=== PATIENT | female | born 1970 | race Caucasian/White ===

== ENCOUNTER → 2021-07-06 10:50 | Outpatient (CLI) | payer OTHER, BC, SELFPAY ==
--- NOTE | ~2021-07-06 | US_ITS ---
US right upper quadrant DATE: 07/06/2021 11:26 INDICATION: Epigastric and right upper quadrant abdominal pain TECHNIQUE: Real-time imaging, Doppler analysis COMPARISON: None FINDINGS: No hepatic space-occupying mass lesion is detected. Normal hepatopedal portal venous flow d irection. No gallstones, gallbladder wall thickening or pericholecystic fluid collection. Negative sonographic Miller's sign. The common bile duct measures 4.9 mm, normal. No pancreatic mass lesion or ductal dilatation. The right kidney is unremarkable.. IMPRESSION: No significant abnormality Reviewed, dictated and finalized at [facility]. Reviewed, dictated and finalized at [facility]. IMPRESSION: No significant abnormality
== END ==
PROVIDERS: PCP Emergency Medicine; Visit Provider Emergency Medicine
DX: R10.9 Unspecified abdominal pain (principal)
CPT/HCPCS: 76705

== ENCOUNTER 2022-06-15 07:30 | Outpatient (CLI) | payer OTHER, BC, SELFPAY ==
--- NOTE | ~2022-06-15 | NM_ITS ---
EXAMINATION: NM hepatobiliary wo pharm DATE: 06/15/2022 11:04 INDICATION: Right upper quadrant abdominal pain COMPARISON: None. TECHNIQUE: I 0.2 mCi Tc-99m mebrofenin (Choletec) was administered intravenously. Scintigraphic imag es of the abdomen were obtained for one hour. At the 1 hour time point, the patient drank 8 oz Ensure , and imaging was continued for 60 minutes. Gallbladder ejection fraction was calculated by the techn ologist. FINDINGS: There is normal clearance of radiotracer from the blood pool. There is homogeneous tracer u ptake by the liver. Activity progresses to the bowel and gallbladder. The gallbladder ejection fract ion (GBEF) is 66%. Note that with this technique, normal GBEF >= 33%. IMPRESSION: 1. Gallbladder ejection fraction below normal limits consistent with either gallbladder dysfunction or chronic cholecystitis in the appropriate clinical setting. Reviewed, dictated and finalized at location [facility]. IMPRESSION: 1. Gallbladder ejection fraction below normal limits consistent with either ga llbladder dysfunction or chronic cholecystitis in the appropriate clinical sett ing.
== END 2022-06-15 07:31 | disposition home or self-care (01) ==
PROVIDERS: PCP Emergency Medicine; Visit Provider Nurse Practitioner Family
DX: R10.11 Right upper quadrant pain (principal)
CPT/HCPCS: 78226; A9537

== ENCOUNTER 2022-07-09 00:06 | Day surgery (SDC) | payer OTHER, BC, SELFPAY ==
[2022-06-21 12:37] VITALS: BMI 28.4
[2022-07-09 07:58] VITALS: BP 146/92; PULSE 76; RESP 20; TEMP 37; O2SAT 95; BMI 27.4
[2022-07-09] MEDS: LACTATED RINGERS 1,000 ML 150 ML IV CONT (08:13)
--- NOTE | 2022-07-09 08:39 | WPDANESEPPF ---
Anes - Initial Pre Proc Eval Procedure: Operation Date: 07/09/22 09:00 Proposed Procedures p Esophagogastroduodenoscopy - Jose Amin MD Date/Time: 07/09/22 08:39 Surgeon: Jose Amin MD Pre Op Diagnosis: RUQP Patient Data Age: 52 Gender: F Height: 1.68 m Weight: 77.1 kg Last Vital Signs Temp 98.6 F 07/09/22 07:58 Pulse 76 07/09/22 07:58 Resp 20 07/09/22 07:58 BP 146/92 H 07/09/22 07:58 Pulse Ox 95 07/09/22 07:58 O2 Del Method Room Air 07/09/22 07:58 Allergies Allergy/AdvReac Type Severity Reaction Status Date / Time No Known Allergies Allergy Unknown Verified 07/09/22 07:57 Home Medications Medication Instructions Recorded Confirmed Type cholecalciferol (vitamin D3) 50 2,000 unit PO DAILY 12/10/19 07/09/22 History mcg (2,000 unit) capsule olmesartan 20 1 tablet PO DAILY #90 tabs 05/04/22 07/09/22 Rx mg-hydrochlorothiazide 12.5 mg tablet sertraline 100 mg tablet See Rx Instructions .Route 05/04/22 07/09/22 Rx .COMPLEX #90 tabs albuterol sulfate 90 mcg/actuation See Rx Instructions .Route 05/18/22 07/09/22 Rx aerosol inhaler .COMPLEX #8.5 grams omeprazole 40 mg capsule,delayed 40 mg PO DAILY PRN Acid Reflux 06/19/22 07/09/22 History release fluticasone propionate 50 1 - 2 spray intranasal DAILY PRN 06/21/22 07/09/22 History mcg/actuation nasal Congestion spray,suspension Patient hx anesthesia problems: none Family hx anesthesia problems: none Results Review: All pre-operative results and documents have been reviewed as part of the pre-operative evaluation. [facility] Past Medical History Medical History Acute sinusitis Biliary dyskinesia Body mass index [BMI] 30.0-30.9, adult (12/09/17) Depression Encounter for insertion of mirena IUD 2012 Hot flashes HTN (hypertension) Intractable episodic headache Other hyperlipidemia RUQ pain Upper respiratory tract infection Surgical History Surgical History History of left-sided carotid endarterectomy Family History Family History Father Family history of pancreatic disease Mother Family history of heart disease in male family member before age 55 Hypertension, Onset Age: 68 Family history of cardiovascular disease, Onset Age: 68 Sibling Asthma Social History Social History (Updated 07/04/22 @ 15:41 by Nathalie Hansen MA) Smoking packs per day: 1 Smoking cigarettes per day: 20.0 Years smoked: 20 Smoking pack-years: 20.00 Smoking status: Current every day smoker Tobacco type: cigarettes Alcohol intake: current Drinks per week: 5 Alcohol use details: 5 Substance use: never Substance use type: does not use Living arrangements: with family Additional occupation/education comments: Customer Service Gender identity (if verbalized by the patient): Female Spiritual care concerns: No Anes - Eval Final PreProcedure Day of Procedure 07/09/22 08:39 Patient weight: normal Heart: regular rate and rhythm Lungs: clear to auscultation Airway: Mallampati scale class II Neurological: alert and oriented Last oral intake: >/= 8 hours ASA classification: III Emergent: no Anesthetic plan: proceed Anesthesia type and monitoring: general GIVS and standard monitoring Results Review: All pre-operative results and documents have been reviewed as part of the pre-operative evaluation. Informed Consent: The patient's anesthetic plan and its attendant risks and benefits were discussed with the patient/family/POA. Questions were solicited and answers provided to the satisfaction of the patient/family/POA.
--- NOTE | 2022-07-09 09:04 | PM.HPGS ---
History of Present Illness History of Present Illness Consent: Risks, benefits, and alternatives have been discussed and questions answered. Patient agrees to proceed with procedure. Chief complaint: RUQP Narrative: Ebony Liu is a 52 year old female with intermittent RUQ, better lately Review of Systems Constitutional: Constitutional: Denies headache(s) and Denies weakness Eyes: Eyes: Denies blurry vision ENT: Reports Normal hearing present, Denies headache(s) and Denies neck pain Cardiovascular: Cardiovascular: Denies chest pain and Denies dyspnea Respiratory: Respiratory: Denies dyspnea Gastrointestinal: Gastrointestinal: Reports no additional gastrointestinal complaints Genitourinary: Genitourinary: Denies dysuria Musculoskeletal: Musculoskeletal: Denies neck pain Integumentary/Breasts: Skin/Breast: Denies dry skin Neurologic: Reports Normal hearing present, Denies headache(s) and Denies weakness Psychiatric: Psychiatric: Denies anxiety Endocrine: Endocrine: Denies change in body appearance Hematologic/Lymphatic: Hematologic/Lymphatic: Denies easy bleeding Allergic/Immunologic: Allergic/Immunologic: Denies urticaria PMFSH Past Medical History Medical History Acute sinusitis Biliary dyskinesia Body mass index [BMI] 30.0-30.9, adult (12/09/17) Depression Encounter for insertion of mirena IUD 2013 Hot flashes HTN (hypertension) Intractable episodic headache Other hyperlipidemia RUQ pain Upper respiratory tract infection Surgical History Surgical History History of left-sided carotid endarterectomy Family History Family History Father Family history of pancreatic disease Mother Family history of heart disease in male family member before age 55 Hypertension, Onset Age: 68 Family history of cardiovascular disease, Onset Age: 68 Sibling Asthma Social History Social History (Updated 07/04/22 @ 15:41 by Nathalie Hansen MA) Smoking packs per day: 1 Smoking cigarettes per day: 20.0 Years smoked: 20 Smoking pack-years: 20.00 Smoking status: Current every day smoker Tobacco type: cigarettes Alcohol intake: current Drinks per week: 5 Alcohol use details: 5 Substance use: never Substance use type: does not use Living arrangements: with family Additional occupation/education comments: Customer Service Gender identity (if verbalized by the patient): Female Spiritual care concerns: No Meds Home Medications and Allergies Home Medications Medication Instructions Recorded Confirmed Type cholecalciferol (vitamin D3) 50 2,000 unit PO DAILY 12/10/19 07/09/22 History mcg (2,000 unit) capsule olmesartan 20 1 tablet PO DAILY #90 tabs 05/04/22 07/09/22 Rx mg-hydrochlorothiazide 12.5 mg tablet sertraline 100 mg tablet See Rx Instructions .Route 05/04/22 07/09/22 Rx .COMPLEX #90 tabs albuterol sulfate 90 mcg/actuation See Rx Instructions .Route 05/18/22 07/09/22 Rx aerosol inhaler .COMPLEX #8.5 grams omeprazole 40 mg capsule,delayed 40 mg PO DAILY PRN Acid Reflux 06/19/22 07/09/22 History release fluticasone propionate 50 1 - 2 spray intranasal DAILY PRN 06/21/22 07/09/22 History mcg/actuation nasal Congestion spray,suspension Allergies Allergy/AdvReac Type Severity Reaction Status Date / Time No Known Allergies Allergy Unknown Verified 07/09/22 07:57 Vital Signs Vital Signs - 24 hr 07/09/22 07:58 Temperature 98.6 F Pulse Rate 76 Respiratory Rate 20 Blood Pressure 146/92 H Pulse Oximetry 95 Oxygen Delivery Room Air Exam Const: General: comfortable and no acute distress HENMT: Face/Nose/Sinus: Normal nares present Eyes: General: appearance normal, both eyes and all related structures Neck: Neck: no JVD Resp: Auscultation: [email or web address]
[2022-07-09 09:22] VITALS: BP 128/81; PULSE 74; RESP 24; O2SAT 96
[2022-07-09 09:32] VITALS: BP 134/88; PULSE 75; RESP 17; O2SAT 100
[2022-07-09 09:42] VITALS: BP 142/85; PULSE 72; RESP 20; O2SAT 100
== END 2022-07-09 09:55 | disposition home or self-care (01) ==
PROVIDERS: PCP Emergency Medicine; Visit Provider Internal Medicine Gastroenterology
PROC: 0DJ08ZZ Inspection of Upper Intestinal Tract, Via Natural or Artificial Opening Endoscopic (ICD-10-PCS; CPT 43235; principal; 2022-07-09 09:00)
DX: R10.11 Right upper quadrant pain (principal); K29.50 Unspecified chronic gastritis without bleeding; I10 Essential (primary) hypertension; F32.A Depression, unspecified; E78.49 Other hyperlipidemia; F17.210 Nicotine dependence, cigarettes, uncomplicated; Z79.51 Long term (current) use of inhaled steroids
CPT/HCPCS: 43239; 87081; 88305; J2704; J3010; J7120

== ENCOUNTER 2023-10-14 11:11 | Emergency (ER) | payer OTHER, SELFPAY ==
[2023-10-14 11:28] VITALS: BP 125/87; PULSE 90; RESP 18; TEMP 36.6; O2SAT 96
--- NOTE | 2023-10-14 11:50 | ED.URI ---
HPI - URI/Sore Throat General Chief Complaint: Upper Respiratory Infection Stated Complaint: sob,cough,weakness Time Seen by Provider: 10/14/23 11:50 Source: patient Mode of arrival: ambulatory Limitations: no limitations History of Present Illness HPI Narrative: 53-year-old female presenting for complaint of cough with shortness of breath for 4 days. Endorses mild nasal congestion, and mild nausea. States she feels like she cannot cough anything up. The day after symptom onset she used a [facility] health doctor and was prescribed Augmentin. Denies vomiting, diarrhea, lethargy, wheezing or chest pain. Taking rodri selzter, using inhaler at times. Daily smoker. Related Data Home Medications Medication Instructions Recorded Confirmed amoxicillin 875 mg-potassium tablet 10/14/23 clavulanate 125 mg tablet Allergies Allergy/AdvReac Type Severity Reaction Status Date / Time No Known Allergies Allergy Unknown Verified 10/14/23 11:50 Review of Systems Review of Systems: CONSTITUTIONAL: Denies body aches, fever, chills, or sweats. EYES: Denies visual changes, redness, or discharge. ENT: Denies rhinorrhea, sore throat, or otalgia. CARDIOVASCULAR: Denies chest pain, palpitations, or edema. RESPIRATORY: Reports cough, sob, denies wheezing. GASTROINTESTINAL: Denies abdominal pain, nausea, vomiting, or diarrhea. SKIN: Denies rash, itching, or wounds. MUSCULOSKELETAL: Denies back pain, joint pain, or myalgia. NEUROLOGIC: Denies headache, numbness, tingling, or weakness. All systems reviewed & are unremarkable except as noted in HPI and below PMFSH Past Medical History Medical History Acute sinusitis Biliary dyskinesia Body mass index [BMI] 30.0-30.9, adult (12/09/17) Depression Encounter for insertion of mirena IUD 2013 Hot flashes HTN (hypertension) Intractable episodic headache Other hyperlipidemia RUQ pain Upper respiratory tract infection Surgical History Surgical History History of left-sided carotid endarterectomy Family History Family History Father Family history of pancreatic disease Mother Family history of heart disease in male family member before age 55 Hypertension, Onset Age: 68 Family history of cardiovascular disease, Onset Age: 68 Sibling Asthma Social History Social History Smoking packs per day: 1 Smoking cigarettes per day: 20.0 Years smoked: 20 Smoking pack-years: 20.00 Smoking status: Current every day smoker Tobacco type: cigarettes Alcohol intake: current Drinks per week: 5 Alcohol use details: 5 Substance use: never Substance use type: does not use Lack of Transportation: No Lack of Food: Never True Current Housing: I Have Housing Concerned About Future Housing: No Difficulty Paying Gas/Electric Bills: No Difficulty Paying for Meds: No Currently Unemployed: No Education: High School Diploma/GED Difficulty w/ Childcare or Family Care: No Living arrangements: with family Occupation/Education: occupation Additional occupation/education comments: Customer Service Gender identity (if verbalized by the patient): Female Sexual Orientation (if Verbalized by the Patient): Straight or Heterosexual Spiritual care concerns: No Comments At time of signature, I have reviewed and agree with nursing past medical, surgical, social and family history unless otherwise noted. Please see nursing chart for further information. There is no relevant family history pertinent to the presenting complaint Exam Narrative: GENERAL: Well-appearing, in no acute distress. EYES: EOMI. No redness or drainage. Conjunctivae normal. ENT: Mucous membranes pink and moist. No rhinorrhea. TMs normal bilaterally. Throa
== END 2023-10-14 12:25 | disposition home or self-care (01) ==
PROVIDERS: Emergency Provider Nurse Practitioner Family; PCP Emergency Medicine
DX: J10.1 Influenza due to other identified influenza virus with other respiratory manifestations (principal); Z20.822 Contact with and (suspected) exposure to COVID-19; F17.210 Nicotine dependence, cigarettes, uncomplicated; I10 Essential (primary) hypertension; E78.49 Other hyperlipidemia
CPT/HCPCS: 87426; 87804; 99213; G0463

== ENCOUNTER 2024-12-10 11:30 | Emergency (ER) | payer OTHER, BC, SELFPAY ==
--- NOTE | ~2024-12-10 | XR_ITS ---
Clinical Indication: Shortness of breath PA and lateral views of the chest: Comparison: 02/28/2015 Findings: The lungs are clear, without evidence of focal consolidation or pleural effusion. Cardiome diastinal silhouette is within normal limits. Bones and soft tissues are unremarkable. Impression: Normal chest. Reviewed, dictated and finalized at location . Impression: Normal chest.
[2024-12-10 11:42] VITALS: BP 188/102; PULSE 73; RESP 18; TEMP 36.7; O2SAT 94
--- NOTE | 2024-12-10 11:43 | ED.URI ---
HPI - URI/Sore Throat General Chief Complaint: Upper Respiratory Infection Stated Complaint: congestion Time Seen by Provider: 12/10/24 11:43 Source: patient Mode of arrival: ambulatory Limitations: no limitations History of Present Illness HPI Narrative: 54 yo F presents with c/o cough, chest congestion, wheezing, SOB with exertion for 2 days. hx of bronchitis. Using albuterol inhaler at home with little relief. Current everyday smoker. All systems reviewed and negative except as noted above. Related Data Allergies Allergy/AdvReac Type Severity Reaction Status Date / Time No Known Allergies Allergy Unknown Verified 12/10/24 11:46 Review of Systems Review of Systems: CONSTITUTIONAL: Denies fever, chills, or sweats. EYES: Denies visual changes, redness, or discharge. ENT: Denies rhinorrhea, congestion, sore throat, or otalgia. CARDIOVASCULAR: Denies chest pain, palpitations, or edema. RESPIRATORY: Reports cough, chest congestion, dyspnea with exertion. GASTROINTESTINAL: Denies abdominal pain, nausea, vomiting, or diarrhea. GENITOURINARY: Denies dysuria or hematuria. SKIN: Denies rash or itching. MUSCULOSKELETAL: Denies back pain, joint pain, or myalgia. NEUROLOGIC: Denies headache, numbness, or weakness. PSYCHIATRIC: Denies anxiety or depression. All other systems reviewed are negative, except as documented in HPI. [facility] Past Medical History Medical History Acute sinusitis Biliary dyskinesia Body mass index [BMI] 30.0-30.9, adult (12/09/17) Depression Encounter for insertion of mirena IUD 2013 Hot flashes HTN (hypertension) Intractable episodic headache Other hyperlipidemia RUQ pain Upper respiratory tract infection Surgical History Surgical History History of left-sided carotid endarterectomy Family History Family History Father Family history of pancreatic disease Mother Family history of heart disease in male family member before age 55 Hypertension, Onset Age: 68 Family history of cardiovascular disease, Onset Age: 68 Sibling Asthma Social History Social History Smoking packs per day: 1 Smoking cigarettes per day: 20.0 Years smoked: 20 Smoking pack-years: 20.00 Smoking status: Current every day smoker Tobacco type: cigarettes Alcohol intake: current Drinks per week: 5 Alcohol use details: 5 Substance use: never Substance use type: does not use Current Housing: Decline to Answer Concerned About Future Housing: Decline to Answer Difficulty Paying Gas/Electric Bills: Decline to Answer Difficulty Paying for Meds: Decline to Answer Currently Unemployed: Decline to Answer Education: Decline to Answer Difficulty w/ Childcare or Family Care: Decline to Answer Living arrangements: with family Occupation/Education: occupation Additional occupation/education comments: Customer Service Gender identity (if verbalized by the patient): Female Sexual Orientation (if Verbalized by the Patient): Straight or Heterosexual Spiritual care concerns: No Comments At time of signature, agree with nursing past medical, surgical, social and family history. There is no relevant family history pertinent to the presenting complaint. Exam Narrative: GENERAL: This is a well-nourished, well-developed patient, ill-appearing but no acute distress HEAD: normocephalic, atraumatic. EYES: PERRL. Sclera clear/white. Vision is grossly intact. EARS: External ears normal, auditory canals clear and without drainage, TMs normal without perforation. Hearing grossly intact. NOSE: External nose normal with no obvious nasal discharge, nares without redness, no rhinorrhea. THROAT: Mucous membranes moist, posterior pharynx clear. NECK: Neck supple, non-tender without lymphadenopathy, masses or thyromegaly. CARDIOVASCULAR: Regular rate and rhythm without murmurs, gallops, or rubs. RESPIRATORY: mildly coarse throughout all lung johnson. Breath sounds equal bilaterally. No wheezes, rales, or rhonchi. SKIN: warm, Dry, intact with no suspicious lesions or rash, good texture and turgor. NEURO: awake, alert, and oriented to person, place and time. There were no obvious focal neurologic abnormalities. EXTREMITIES: No joint tenderness, effusion, or edema noted. Course Course Level of Care: Express Care Visit Reevaluation(s) Reevaluation #1: Lungs clear throughout all lung johnson after DuoNeb. Vital Signs Vital signs: Vital Signs Temperature 36.7 C 12/10/24 11:42 Pulse Rate 73 12/10/24 11:42 Respiratory Rate 18 12/10/24 11:42 Blood Pressure 188/102 H 12/10/24 11:42 Pulse Oximetry 94 12/10/24 11:42 Oxygen Delivery Room Air 12/10/24 11:42 Temperature 36.7 C 12/10/24 11:42 Pulse Rate 79 12/10/24 12:14 Respiratory Rate 20 12/10/24 12:14 Blood Pressure 170/92 H 12/10/24 12:29 Pulse Oximetry 95 12/10/24 12:14 Oxygen Delivery Room Air 12/10/24 11:42 Reviewed MDM - URI/Sore Throat MDM Narrative Medical decision making narrative: patient's chest x-ray negative for pneumonia. Treat patient for bronchitis. Blood pressure elevated today. Patient did not take her blood pressure meds prior to coming to [facility]. Will take them when she gets home. Will monitor blood pressure at home and if continues to be elevated will see her primary care physician. Patient is alert, nontoxic. No respiratory distress. Please be advised this is a medical document. It is intended for [id number] communication. It is written in medical language and may contain unfamiliar abbreviations or verbiage. Medical documents are intended to carry relevant information, facts as evident, and the clinical opinion of the practitioner at the time of the encounter. This report may have been done utilizing a voice recognition system. Attempts have been made to correct errors. However, there may be uncorrected grammatical, spelling, and recognition errors present. The file time of this note does not necessarily represent the time of service. Imaging Data My impression: agree with radiologist Radiologist's impression: Clinical Indication: Shortness of breath PA and lateral views of the chest: Comparison: 02/28/2015 Findings: The lungs are clear, without evidence of focal consolidation or pleural effusion. Cardiomediastinal silhouette is within normal limits. Bones and soft tissues are unremarkable. Impression: Normal chest. Discharge Plan Discharge Clinical Impression: Acute bronchitis Patient Disposition: Home, Self-Care Condition: Stable Instructions: Antibiotic Form, Acute Bronchitis (ED) Additional Instructions: Your chest x-ray was normal. Take medications as prescribed. Continue using inhaler every 4-6 hours. Drink at least 64 oz of water a day. Monitor your blood pressure at home. Follow-up with your primary care physician if blood pressure remains elevated. Patient Language: Azeri Prescriptions: New doxycycline hyclate 100 mg capsule 100 mg PO BID 7 Days Qty: 14 0RF benzonatate 200 mg capsule 200 mg PO TID PRN (Reason: cough) Qty: 20 0RF prednisone 20 mg tablet 40 mg PO DAILY 5 Days Qty: 10 0RF (DME) Aerochamber Plus Z Stat Spacer See Rx Instructions .Route Qty: 1 0RF Rx Instructions: As directed No Action fluticasone propionate [Flonase Allergy Relief] 50 mcg/actuation spray,suspension 1 spray intranasal BID Qty: 48 0RF Rx Instructions: administer into each nostril metoprolol succinate 25 mg tablet extended release 24 hr 25 mg PO DAILY Qty: 90 2RF olmesartan 20 mg tablet 20 mg PO DAILY Qty: 90 2RF sertraline 100 mg tablet See Rx Instructions .ROUTE .COMPLEX Qty: 90 2RF Dose Instruction: TAKE 1 TABLET BY MOUTH DAILY Rx Instructions: TAKE 1 TABLET BY MOUTH DAILY azelastine 137 mcg (0.1 %) spray,non-aerosol See Rx Instructions .ROUTE .COMPLEX Qty: 90 2RF Dose Instruction: USE 2 SPRAYS IN EACH NOSTRIL EVERY 12 HOURS Rx Instructions: USE 2 SPRAYS IN EACH NOSTRIL EVERY 12 HOURS albuterol sulfate 90 mcg/actuation HFA aerosol inhaler See Rx Instructions .ROUTE .COMPLEX Qty: 8.5 3RF Dose Instruction: INHALE 1 TO 2 PUFFS BY MOUTH EVERY 4 TO 6 HOURS Rx Instructions: INHALE 1 TO 2 PUFFS BY MOUTH EVERY 4 TO 6 HOURS Follow-up/Referrals: Brooks Wilkinson MD [Primary Care Provider] - Time of Disposition: 12:29
[2024-12-10] MEDS: predniSONE 20 MG TABLET 40 MG PO (11:55)
[2024-12-10] MEDS: IPRATROPIUM 0.5 MG/ALBUTEROL SULFATE 2.5 MG AMPUL.NEB 3 ML INHALATION (12:01)
[2024-12-10 12:02] VITALS: PULSE 83; RESP 22; O2SAT 93
[2024-12-10 12:14] VITALS: PULSE 79; RESP 20; O2SAT 95
[2024-12-10 12:29] VITALS: BP 170/92
--- OUTSIDE RECORDS SUMMARY | 2024-12-10 13:24 | XMS_ITS | Clinical Summary ---
Author Organization [facility] at the [facility] Address [address] [place] [address] Care Team Providers Care Solar Energy Sales Specialist Name Role Phone Brooks Wilkinson MD Primary Care Provide r Allergies No known active allergies Medications aspirin (ASPIRIN LOW DOSE) 81 mg tablet take 1 tablet by oral route every day 0 0 4 Active Additional Information Patient not taking.Reported on 08/17/2024 atorvastatin (LIPITOR) 40 mg tablet take 1 tablet by oral route every day 30 3 4 Active sertraline (ZOLOFT) 100 mg tablet take 1 tablet by oral route every day 0 0 4 Active albuterol HFA (PROVENTIL HFA,VENTOLIN HFA,PROAIR HFA) 90 mcg/actuation inhaler ProAir HFA 90 mcg/actuation aerosol inhaler INL 2 PFS PO Q 4 TO 6 H PRN Active cholecalciferol (VITAMIN D-3) 2000 unit tablet Vitamin D3 50 mcg (2,000 unit) tablet TK 1 T PO QD FOR 30 DAYS Active influenza quadrivalent 7304-7066 (FLULAVAL,FLUARI X) 60 mcg (15 mcg x 4)/0.5 mL syringe Afluria Quad 8471-9196 (PF) 60 mcg (15 mcg x 4)/0.5 mL IM syringe ADM 0.5ML IM UTD Active levonorgestreL (Mirena) IUD Mirena 20 mcg/24 hours (6 yrs) 52 mg intrauterine device Take 1 device by intrauterine route. Active nepafenac (Nevanac) 0.1 % ophthalmic suspension Nevanac 0.1 % eye drops,suspension Active olmesartan-amLOD IPin-hcthiazid 20-5-12.5 mg tablet Take by mouth Active omeprazole (PriLOSEC) 40 mg capsule TAKE 1 CAPSULE BY MOUTH DAILY FOR STOMACH ACID OR REFLUX 2 Active promethazine (PHENERGAN) 1.25 mg/mL syrup TAKE 5 ML BY MOUTH EVERY 4 -6 HOURS NEEDED 2 Active Active Problems Problem Noted Date Diagnosed Date Hyperlipidemia 07/29/2020 Smoker 07/29/2020 Assessment & Plan (08/10/2022 12:26 PM SQL ANALYST): Patient with history of tobacco abuse who is a current everyday 1 pack per day smoker. I had a greater than 3 minute discussion with the patient on the importance of smoking cessation and the negative affects on their cardiovascular health. Patient understands importance of cessation. Amenorrhea 07/28/2020 Irregular periods 07/28/2020 Occlusion and stenosis of bilateral carotid kadi veronica 12/13/2016 Assessment & Plan (08/18/2024 12:34 PM SQL ANALYST): Chronic occlusion right ICA. The left ICA shows mild stenosis. Patient remains asymptomatic and compliant with medications. Unfortunately continues to smoke. Follow-up in 1 year for routine surveillance with a carotid duplex. Assessment & Plan (08/10/2022 12:27 PM SQL ANALYST): History of bilateral carotid stenosis with chronic right-sided occlusion is status post left endarterectomy in 2013. She remains asymptomatic. Left ICA remains patent with stenosis measuring 1-15% and a velocity of 95. Seen with Dr. Doss. Plan: Return in 2 years for routine surveillance of a carotid stenosis with a carotid ultrasound. Resolved Problems Problem Noted Date Diagnosed Date Resolved Date Arterial disease 07/27/2014 07/29/2020 Overview (01/10/2017): Disorder of artery Immunizations Immunization Administration Dates Next Due Influenza, Quadrivalent, Spl it, Preservative Free, Intramuscular 07/29/2019,08/04/2018 Medical History Medical History Date Comments Hx Other Medical tobacco use; Co mments: [facility] 07/27/2014 - Hypertension Hypertension Anxiety disorder Anxiety Hx Other Medical migraine headac hes; Comments: [facility] 07/27/2014 - Social History Tobacco Use Types Packs/Day Years Used Date Smoking Tobacco: Every Day Tobacco Cessation:Ready to Q uit: Not Asked; Counseling Given: Not Answered Alcohol Use Standard Drinks/Week Comments Yes 0 (1 standard drink = 0.6 oz pur e alcohol) Comments Unknown Sex and Gender Information Value Date Recorded Sex Assigned at Not on file Legal Sex Female 3:27 AM SQL ANALYST Gender Identity Not on file Sexual Orientation Not on file Obstetrics History Last Filed Vital Signs Vital Sign Reading Time Taken Comments Blood Pressure 152/99 08/17/2024 1:48 PM SQL ANALYST Pulse 75 08/17/2024 1:48 PM SQL ANALYST Temperature - - Respiratory Rate - - Oxygen Saturation - - Inhaled Oxygen Concentration - - Weight 79.4 kg (175 lb) 08/17/2024 1:48 PM SQL ANALYST Height 167.6 cm (5' 6 ) 08/17/2024 1:48 PM SQL ANALYST Body Mass Index 28.25 08/17/2024 1:48 PM SQL ANALYST Plan of Treatment Health Maintenance Due Date Last Done Comments Breast Cancer Screening-Mammogram 1968 Cervical Cancer Screening 1968 Colon Cancer Screening-Colonoscopy 1968 Depression Screening 1968 Hepatitis C Screening 1968 DTaP/Tdap/Td Vaccine (1 - Tdap) 1979 Hepatitis B Screening 1986 Regular Well Visit/Exam 18-64 1986 Pneumococcal vaccine <65 (1 of 2 - PCV) 1987 Zoster Vaccine (1 of 2) 2018 Influenza Vaccine (#1) 2024 07/29/2019, 2017 Insurance [employer] CHOICE [employer] [facility] ACCESS CHOICE [employer] OPEN ACCESS Care Teams Solar Energy Sales Specialist Relationship Specialty Start Date End Date Brooks Wilkinson MD [address] [place] [address] PCP - General Emergency Medicine 08/09/22
--- OUTSIDE RECORDS SUMMARY | 2024-12-10 13:24 | XMS_ITS | Referral Summary ---
Author Organization [facility] Address [address] [place] [address] Care Team Providers Care Cotton Breeder Name Role Phone Brooks Wilkinson MD Primary [...] QD FOR 30 DAYS Active influenza quadrivalent [id number] (FLULAVAL,FLUARI X) 60 mcg (15 mcg x 4)/0.5 mL syringe Afluria Quad [id number] (PF) 60 mcg (15 mcg x 4)/0.5 [...] 07/29/2020 Assessment & Plan (08/10/2022 12:26 PM GOLF COURSE RANGER): Patient with history of tobacco abuse who [...] 12/13/2016 Assessment & Plan (08/18/2024 12:34 PM GOLF COURSE RANGER): Chronic occlusion right ICA. The left ICA shows mild stenosis. Patient remains asymptomatic and compliant with medications. Unfortunately continues to smoke. Follow-up in 1 year for routine surveillance with a carotid duplex. Assessment & Plan (08/10/2022 12:27 PM GOLF COURSE RANGER): History of bilateral carotid stenosis with chronic [...] Quadrivalent, Spl it, Preservative Free, Intramuscular 07/29/2019,08/04/2018 Social History Tobacco Use Types Packs/Day Years Used Date Smoking Tobacco: Every Day Tobacco Cessation:Ready to Q uit: Not Asked; Counseling Given: Not Answered Alcohol Use Standard Drinks/Week Comments Yes 0 (1 standard drink = 0.6 oz pur e alcohol) Comments Unknown Sex and Gender Information Value Date Recorded Sex Assigned at Not on file Legal Sex Female 3:27 AM GOLF COURSE RANGER Gender Identity Not on file Sexual Orientation Not on file Last Filed Vital Signs Vital Sign Reading Time Taken Comments Blood Pressure 152/99 08/17/2024 1:48 PM GOLF COURSE RANGER Pulse 75 08/17/2024 1:48 PM GOLF COURSE RANGER Temperature - - Respiratory Rate - - Oxygen Saturation - - Inhaled Oxygen Concentration - - Weight 79.4 kg (175 lb) 08/17/2024 1:48 PM GOLF COURSE RANGER Height 167.6 cm (5' 6 ) 08/17/2024 1:48 PM GOLF COURSE RANGER Body Mass Index 28.25 08/17/2024 1:48 PM GOLF COURSE RANGER Plan of Treatment Not on file Insurance [employer] Member Subscriber Plan / Payer (Ef fective 2019-Present) Name:Esperanza Becerra Relation to Subscriber:Spouse Name:ESPERANZA BECERRA Date of :1968 (Home) (Work) Address: [address] [place] [address] Payer ID:[id number] (NAIC) Type: ALLIANCE Address: [facility] [phone] [facility] [employer] [facility] CHOICE [employer] OPEN ACCESS Care Teams Cotton Breeder Relationship Specialty Start Date End Date Brooks Wilkinson MD [address] [place] [address] PCP - General Emergency Medicine 08/09/22
--- OUTSIDE RECORDS SUMMARY | 2024-12-10 13:24 | XMS_ITS | Clinical Summary ---
Author Organization [facility] Address [facility] [place] [address] Care Team Providers Care Plaster Model And Mold Maker Name Role Phone Brooks Wilkinson MD Primary Care Provider [phone] Allergies No known active allergies Medications sertraline (ZOLOFT) 100 MG tablet Take 100 mg by mouth daily. Active Olmesartan-amLOD IPine-HCTZ 20-5-12.5 MG Tab Act tobi albuterol sulfate HFA 108 (90 Base) MCG/ACT inhaler Inhale 1 puff into the lungs daily as needed. 03/01/2022 Active Social History Tobacco Use Types Packs/Day Years Used Date Smoking Tobacco: Every Day Cigarettes 1 20 Smokeless Tobacco: Never Alcohol Use Standard Drinks/Week Comments Yes 0 (1 standard drink = 0.6 oz pur e alcohol) social drinker Comments Unknown Sex and Gender Information Value Date Recorded Sex Assigned at Not on file Legal Sex Female 10:07 AM CDT Gender Identity Not on file Sexual Orientation Not on file Last Filed Vital Signs Vital Sign Reading Time Taken Comments Blood Pressure 159/87 04/23/2022 9:26 AM CDT Pulse 77 04/23/2022 9:26 AM CDT Temperature 36.9 C (98.5 F) 04/23/2022 8:03 AM CDT Respiratory Rate 20 04/23/2022 8:03 AM CDT Oxygen Saturation 97% 04/23/2022 9:26 AM CDT Inhaled Oxygen Concentration - - Weight 79.4 kg (175 lb) 04/23/2022 8:03 AM CDT Height 167.6 cm (5' 6 ) 04/23/2022 8:03 AM CDT Body Mass Index 28.25 04/23/2022 8:03 AM CDT Plan of Treatment Health Maintenance Due Date Last Done Comments Cervical Cancer Screening Pa p Smear (Age 30 to 64) Every 3 Years 1968 Colorectal Cancer Screening Colonoscopy (10 Years) 1968 Annual Physical 1971 Pneumococcal Vaccine: Pediatrics (0 to 5 Years) and At-Risk Patients (6 to 64 Years) (1 of 2 - PCV) 1974 Hepatitis C 1986 DTaP, Tdap and Td Vaccines ( 1 - Tdap) 1987 Hepatitis B Vaccines (1 of 3 - 19+ 3-dose series) 1987 Cervical Cancer Screening Pa p with HPV Testing (Age 30 to 64) Every 5 Years 1998 Cervical Cancer Screening wi th HPV 1998 Mammogram Screening 2008 Zoster Vaccines (1 of 2) 2018 COVID-19 Vaccine (2023-2 5 season) 2024 01/16/2021, 12/26/2020 Influenza Adult (#1) 2024 07/22/2020, 07/29/2019, 08/04/2018 Meningococcal B Vaccine Aged Out No l onger eligible based on patient's age to complete this topic Meningococcal Vaccine Aged Out No nayana caleb eligible based on patient's age to complete this topic RSV Immunizations Under 20 Months Aged Out No longer eligible b ased on patient's age to complete this topic Medical Devices Implanted Type Area Engagement Engineer Device Identifier Shelf Expiration Date Model / Serial / Lot Intraocular Lens [id number] Implanted:Qty: 1 on 03/26/2022 by Alan Hernandez MD at [facility] Lens Left: Eye [id number] 11/01/2023 [id number] / [id number] / Iol [employer] [id number] - [id number] Implanted:Qty: 1 on 04/23/2022 by Alan Hernandez MD at [facility] Lens Right: Eye [employer] [id number] 07/01/2022 ZCB00 / [id number] / Insurance [employer] [facility] [email or web address]] Care Teams Plaster Model And Mold Maker Relationship Specialty Start Date End Date Brooks Wilkinson MD [address] [address] PCP - General INTERNAL MEDICINE 03/26/22
== END 2024-12-10 12:33 | disposition home or self-care (01) ==
PROVIDERS: Emergency Provider Nurse Practitioner Family; PCP Emergency Medicine
DX: J20.9 Acute bronchitis, unspecified (principal); F17.210 Nicotine dependence, cigarettes, uncomplicated; I10 Essential (primary) hypertension; E78.49 Other hyperlipidemia; K82.8 Other specified diseases of gallbladder; F32.A Depression, unspecified
CPT/HCPCS: 71046; 99213; G0463; J7512

== ENCOUNTER 2025-06-30 07:54 | Outpatient (CLI) | payer OTHER, SELFPAY ==
--- NOTE | ~2025-06-30 | MM_ITS ---
EXAMINATION: MM screening srinivasa BI w demetrio HISTORY: Screening TECHNIQUE: Craniocaudal and mediolateral oblique 3-D tomosynthesis images were obtained and synthetic 2-D images were generated. CAD analysis was submitted and interpreted. COMPARISON: No prior mammogram is available for comparison at this institution. BREAST PARENCHYMAL COMPOSITION: Not dense: There are scattered areas of fibroglandular density. FINDINGS: The left breast is unremarkable without suspicious mass, calcifications or architectural distortion to suggest malignancy. There is a low-density subareolar mass of the right breast. IMPRESSION: 1. Low-density subareolar mass of the right breast. 2. Additional mammographic views and possible breast ultrasound are recommended. BI-RADS Category 0: Incomplete: Needs additional imaging evaluation. Reviewed, dictated and finalized at location B. IMPRESSION: 1. Low-density subareolar mass of the right breast. 2. Additional mammographic views and possible breast ultrasound are recommended . BI-RADS Category 0: Incomplete: Needs additional imaging evaluation.
== END 2025-06-30 07:55 | disposition home or self-care (01) ==
LOC: MICIMG 07:55
PROVIDERS: PCP Emergency Medicine; Visit Provider Emergency Medicine
DX: Z12.31 Encounter for screening mammogram for malignant neoplasm of breast (principal); R92.8 Other abnormal and inconclusive findings on diagnostic imaging of breast
CPT/HCPCS: 77063; 77067